=== PATIENT | female | born 1965 | race Caucasian/White ===

== ENCOUNTER 2017-07-12 06:12 | Inpatient (IN) | payer BC ==
[~2017-07-12] VITALS: Ht 152.4 cm; Wt 94.0 kg
[2017-07-12] VITALS (8 sets, daily range): BP systolic 115–146; BP diastolic 63–84
[~2017-07-12 06:12] MED LIST: MIDRIN (DURADR1 CAP PO
--- NOTE | 2017-07-12 06:20 | NUR ---
500 ML BAG RUNNING OF NORMAL SALINE PER EMS
--- NOTE | 2017-07-12 07:03 | NUR ---
SPOKE WITH PATIENT AT THE BEDSIDE, STILL HAVING DIZZINESS WHEN MOVING HER HEAD. PLACED BACK ON BEVERAGE SERVER, VITAL SIGNS CHARTED. NO PAIN.
[2017-07-12 07:10] LABS: BASO # 0.1 10*3/uL (0.0-0.1); BASO % 0.8 % (0.0-1.0); EOS # 0.3 10*3/uL (0.0-0.4); EOS % 3.6 % (1.0-4.0); HEMATOCRIT 43.9 % (37.0-47.0); HEMOGLOBIN 14.2 g/dl (12.0-16.0); LYMPH # 2.2 10*3/uL (1.3-4.4); LYMPH % 29.5 % (27.0-41.0); MEAN CELL VOLUME 90.3 fl (81.0-99.0); MEAN CORPUSCULAR HGB 29.2 pg (27.0-31.0); MEAN CORPUSCULAR HGB CONC 32.3 g/dl (33.0-37.0); MEAN PLATELET VOLUME 10.2 fl (9.6-12.3); MONO # 0.7 10*3/uL (0.1-1.0); MONO % 8.8 % (3.0-9.0); NEUT # 4.3 10*3/uL (2.3-7.9); PLATELET COUNT AUTOMATED 247 10*3/uL (130-400); RED BLOOD COUNT 4.86 10*6/uL (4.10-5.10); RED CELL DISTRI WIDTH 13.2 % (0-14.5); WHITE BLOOD COUNT 7.5 10*3/uL (4.8-10.8)
[2017-07-12 07:37] LABS: ALBUMIN 3.1 gm/dl (3.1-4.5); ALKALINE PHOSPHATASE 85 U/L (45-117); BUN 12 mg/dl (7-24); CHLORIDE 107 mmol/L (98-107); CREATININE 1.07 mg/dL (0.55-1.02); POTASSIUM 4.2 mmol/L (3.5-5.1); SGOT/AST 16 IU/L (3-35); SGPT/ALT 10 U/L (12-78); SODIUM 141 mmol/L (136-145); TOTAL PROTEIN 6.8 gm/dL (6.4-8.2)
[2017-07-12 07:38] LABS: TROPONIN I < 0.015 ng/ml (<0.045)
[2017-07-12 07:50] LABS: BILIRUBIN NEGATIVE (NEGATIVE); BLOOD TRACE-INTACT (NEGATIVE); CLARITY CLEAR (CLEAR); COLOR YELLOW (YELLOW); GLUCOSE NEGATIVE (NEGATIVE); KETONE NEGATIVE (NEGATIVE); LEUKO ESTERASE NEGATIVE (NEGATIVE); NITRITE NEGATIVE (NEGATIVE); SPECIFIC GRAVITY <= 1.005 (1.005-1.030); UROBILINOGEN 0.2 E.U./dl (0.2-1.0)
--- NOTE | 2017-07-12 07:50 | NUR ---
ORTHOSTATICS PERFORMED. LYING- BP- 131/72 PULSE- 63 SITTING- BP- 121/82 PULSE- 65 PT DIZZY WITH THESE RESULTS, DID NOT MAKE HER STAND. RESULTS GIVEN TO .
[2017-07-12 08:00] LABS: BACTERIA TRACE
--- NOTE | 2017-07-12 08:50 | NUR ---
A 51, admitted to , under the services of ALFRED Serrano DO with a diagnosis of VERTIGO, NAUSEA, VOMITING. Chief complaint is DIZZINESS, VERTIGO. Patient arrived via bed from ER. Monitor applied. Initial assessment completed. Vital signs taken and recorded. ALFRED SERRANO DO notified of admission to the unit. Orders received. See assessment for past medical history, medications and allergies. Patient and/or family oriented to unit. [facility] visitation policy reviewed. Clothing/patient valuable form completed. NERY RAMOS
[2017-07-12] MEDS ORDERED: PRADAXA150 MG PO (09:02)
[2017-07-12] MEDS ORDERED: DIOVAN80 M1 PO (09:02)
--- NOTE | 2017-07-12 09:36 | NUR ---
DR DAVILA NOTIFIED THAT PATIENT IS IN THE ROOM AND AWAITING TO VERIFY MEDS ONCE PHARMACY OPENS
--- NOTE | 2017-07-12 10:49 | NUR ---
MEDS VERIFIED. DR DAVILA AWARE
--- NOTE | 2017-07-12 18:22 | NUR ---
ORTHOS CALLED TO DR Asmita DAVILA
--- NOTE | 2017-07-12 23:32 | NUR ---
24 HR chart check completed.
[2017-07-13] VITALS: BP 124/68
[2017-07-13 06:26] LABS: BASO # 0.1 10*3/uL (0.0-0.1); BASO % 0.9 % (0.0-1.0); EOS # 0.3 10*3/uL (0.0-0.4); EOS % 3.1 % (1.0-4.0); HEMATOCRIT 39.6 % (37.0-47.0); HEMOGLOBIN 12.9 g/dl (12.0-16.0); LYMPH # 2.7 10*3/uL (1.3-4.4); LYMPH % 33.7 % (27.0-41.0); MEAN CELL VOLUME 91.9 fl (81.0-99.0); MEAN CORPUSCULAR HGB 29.9 pg (27.0-31.0); MEAN CORPUSCULAR HGB CONC 32.6 g/dl (33.0-37.0); MEAN PLATELET VOLUME 10.4 fl (9.6-12.3); MONO # 0.6 10*3/uL (0.1-1.0); MONO % 7.5 % (3.0-9.0); NEUT # 4.4 10*3/uL (2.3-7.9); NEUT % 54.6 % (47.0-73.0); PLATELET COUNT AUTOMATED 236 10*3/uL (130-400); RED BLOOD COUNT 4.31 10*6/uL (4.10-5.10); RED CELL DISTRI WIDTH 13.3 % (0-14.5)
[2017-07-13 06:58] LABS: BUN 12 mg/dl (7-24); CHLORIDE 110 mmol/L (98-107); CHOLESTEROL 159 mg/dL (<200); HDL CHOLESTEROL 40 mg/dl (40-60); LDL CHOLESTEROL 91 mg/dL (9-159); MAGNESIUM 1.9 mg/dL (1.5-2.1); PHOSPHOROUS 2.5 mg/dL (2.5-4.9); POTASSIUM 3.9 mmol/L (3.5-5.1); SODIUM 142 mmol/L (136-145); TRIGLYCERIDES 138 mg/dl (<150); VLDL CHOLESTEROL 28 mg/dL (6-40)
[2017-07-13 08:00] VITALS: BP 128/74
--- NOTE | 2017-07-13 08:30 | NUR ---
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 Patient states lives at HOME with HER . There are 15 steps in the home. Physician: DR BLAS Pharmacy: [facility] services: NONE Patient's level of ADLs: INDEPENDENT Patient has working utilities: YES DME: NONE Follow-up physician's appointment after d/c: WILL BE MADE PRIOR TO DC Does patient want to access PORTAL?: Discharge plan HOME. GENTRY OLIVER
[2017-07-13 09:23] LABS: VITAMIN D, 25-HYDROXY 19.3 ng/mL (30-100)
[2017-07-13 12:00] VITALS: BP 126/62
--- NOTE | 2017-07-13 12:25 | NUR ---
Discharge instructions reviewed with patient/family. Patient receptive and verbalizes understanding. Follow-up care arranged. Written instructions given to patient/family. EVITA ANDREWS
== END 2017-07-13 12:25 | disposition home or self-care (01) | DRG 392 ==
LOC: ED 06:12 → EDHOLD 08:05 → 5E 08:05
PROVIDERS: Emergency Medicine; Internal Medicine; ADMIT Internal Medicine
DX: R11.2 Nausea with vomiting, unspecified (principal); D68.9 Coagulation defect, unspecified; E44.1 Mild protein-calorie malnutrition; I10 Essential (primary) hypertension; R42 Dizziness and giddiness; E66.01 Morbid (severe) obesity due to excess calories; R00.1 Bradycardia, unspecified; Z86.73 Personal history of transient ischemic attack (TIA), and cerebral infarction without residual deficits; Z80.7 Family history of other malignant neoplasms of lymphoid, hematopoietic and related tissues; Z79.899 Other long term (current) drug therapy; Z68.29 Body mass index [BMI] 29.0-29.9, adult

== ENCOUNTER 2024-02-23 17:20 | Inpatient (IN) | payer BC ==
[~2024-02-23] VITALS: Ht 152.4 cm; Wt 100.8 kg
[~2024-02-23 17:20] MED LIST changes: +DIOVAN80 M1 PO; +PRADAXA150 MG PO
[2024-02-23 17:26] VITALS: BP 148/100
[2024-02-23] MEDS ORDERED: IOHEXOL 350 MG/ML 100 ML VIAL IV ONE (17:40)
[2024-02-23] MEDS ORDERED: SODIUM CHLORIDE 0.9% 100 ML BAG IV ONE (17:40)
[2024-02-23 18:35] LABS: BASO # 0.1 10*3/uL (0.0-0.1); BASO % 0.7 % (0.0-1.0); EOS # 0.2 10*3/uL (0.0-0.4); EOS % 2.4 % (1.0-4.0); LYMPH # 2.4 10*3/uL (1.3-4.4); LYMPH % 29.1 % (27.0-41.0); MEAN CELL VOLUME 94.4 fl (81.0-99.0); MEAN CORPUSCULAR HGB 29.1 pg (27.0-31.0); MEAN CORPUSCULAR HGB CONC 30.9 g/dl (33.0-37.0); MEAN PLATELET VOLUME 10.2 fl (9.6-12.3); MONO # 0.5 10*3/uL (0.1-1.0); MONO % 6.5 % (3.0-9.0); NEUT # 5.1 10*3/uL (2.3-7.9); NEUT % 61.2 % (47.0-73.0); PLATELET COUNT AUTOMATED 252 10*3/uL (130-400); RED BLOOD COUNT 4.98 10*6/uL (4.10-5.10); RED CELL DISTRI WIDTH 13.3 % (0-14.5); WHITE BLOOD COUNT 8.3 10*3/uL (4.8-10.8)
[2024-02-23 18:48] LABS: ACT PARTIAL THROMBO TIME 26.9 SECONDS (20.0-32.1)
[2024-02-23] MEDS ORDERED: LOSARTAN POTAS100 M1 PO (18:54)
[2024-02-23] MEDS ORDERED: TOPROL XL25 MG PO (18:54)
[2024-02-23] MEDS ORDERED: LEXAPRO10 MG PO (18:55)
[2024-02-23 18:58] LABS: ALKALINE PHOSPHATASE 105 U/L (46-116); BUN 13 mg/dl (9-23); CHLORIDE 105 mmol/L (98-107); POTASSIUM 4.2 mmol/L (3.4-5.1); SGPT/ALT 7 U/L (5-49); TOTAL PROTEIN 7.3 gm/dL (6.0-8.0)
[2024-02-23 21:04] VITALS: BP 141/70
[2024-02-23] MEDS ORDERED: ACETAMINOPHEN 650 MG SUPP R PRN (21:15)
[2024-02-23] MEDS ORDERED: TEMAZEPAM 15 MG CAP PO PRN (21:15)
[2024-02-23] MEDS ORDERED: Magnesium Hydroxide 30 ML UDC PO PRN (21:15)
[2024-02-23] MEDS ORDERED: Ondansetron Hydrochloride 4 MG/2 ML VIAL IV PRN (21:15)
[2024-02-23] MEDS ORDERED: BISACODYL 5 MG TAB PO PRN (21:15)
[2024-02-23] MEDS ORDERED: MORPHINE Sulfate 2 MG/ML SYR IV PRN (21:15)
[2024-02-23] MEDS ORDERED: ACETAMINOPHEN 325 MG TAB PO PRN (21:15)
[2024-02-23] MEDS ORDERED: BISACODYL 10 MG SUPP R PRN (21:15)
[2024-02-23] MEDS ORDERED: Acetaminophen/Hydrocodone 5 MG/325 MG TABLET PO PRN (21:15)
[2024-02-23] MEDS ORDERED: ESCITALOPRAM OXALATE 10 MG TAB PO SCH (22:00)
[2024-02-23] MEDS ORDERED: METOPROLOL SUCCINATE XR 25 MG TAB PO SCH (22:00)
[2024-02-23] MEDS ORDERED: DABIGATRAN 150 MG CAP PO SCH (22:00)
[2024-02-23] MEDS ORDERED: Losartan Potassium 50 MG TAB PO SCH (22:00)
[2024-02-24] VITALS: BP 129/49
[2024-02-24 04:54] LABS: ACT PARTIAL THROMBO TIME 39.7 SECONDS (20.0-32.1)
[2024-02-24 05:08] LABS: VITAMIN D, 25-HYDROXY 17.9 ng/mL (30-100)
[2024-02-24 05:09] LABS: ALKALINE PHOSPHATASE 88 U/L (46-116); BUN 14 mg/dl (9-23); CHLORIDE 105 mmol/L (98-107); CHOLESTEROL 201 mg/dL (<200); LDL CHOLESTEROL 129 mg/dL (9-159); SGPT/ALT 7 U/L (5-49); TOTAL PROTEIN 6.5 gm/dL (6.0-8.0); TRIGLYCERIDES 106 mg/dl (<150)
[2024-02-24 06:09] LABS: BASO # 0.1 10*3/uL (0.0-0.1); BASO % 0.7 % (0.0-1.0); EOS # 0.2 10*3/uL (0.0-0.4); EOS % 2.4 % (1.0-4.0); HEMATOCRIT 43.3 % (37.0-47.0); LYMPH # 2.9 10*3/uL (1.3-4.4); LYMPH % 36.3 % (27.0-41.0); MEAN CELL VOLUME 93.1 fl (81.0-99.0); MEAN CORPUSCULAR HGB CONC 31.2 g/dl (33.0-37.0); MEAN PLATELET VOLUME 10.4 fl (9.6-12.3); MONO # 0.6 10*3/uL (0.1-1.0); MONO % 7.4 % (3.0-9.0); NEUT # 4.3 10*3/uL (2.3-7.9); NEUT % 53.1 % (47.0-73.0); PLATELET COUNT AUTOMATED 253 10*3/uL (130-400); RED BLOOD COUNT 4.65 10*6/uL (4.10-5.10); RED CELL DISTRI WIDTH 13.3 % (0-14.5)
[2024-02-24] MEDS ORDERED: LORazepam 1 MG TAB PO ONE (08:15)
[2024-02-24 12:00] VITALS: BP 133/60
[2024-02-24] MEDS ORDERED: BARIUM SULFATE 98% 340 GM BOT PO ONE ×2 (13:56→14:00)
[2024-02-24 15:39] VITALS: BP 111/46
[2024-02-24 16:55] VITALS: BP 137/79
[2024-02-24 20:36] VITALS: BP 131/74
[2024-02-25] VITALS: BP 123/66
[2024-02-25 06:46] LABS: BASO # 0.1 10*3/uL (0.0-0.1); BASO % 0.9 % (0.0-1.0); EOS # 0.2 10*3/uL (0.0-0.4); HEMATOCRIT 43.9 % (37.0-47.0); LYMPH # 2.3 10*3/uL (1.3-4.4); LYMPH % 34.9 % (27.0-41.0); MEAN CELL VOLUME 90.7 fl (81.0-99.0); MEAN CORPUSCULAR HGB 28.9 pg (27.0-31.0); MEAN CORPUSCULAR HGB CONC 31.9 g/dl (33.0-37.0); MEAN PLATELET VOLUME 10.3 fl (9.6-12.3); MONO # 0.5 10*3/uL (0.1-1.0); MONO % 7.2 % (3.0-9.0); NEUT # 3.6 10*3/uL (2.3-7.9); NEUT % 53.9 % (47.0-73.0); PLATELET COUNT AUTOMATED 241 10*3/uL (130-400); RED BLOOD COUNT 4.84 10*6/uL (4.10-5.10); RED CELL DISTRI WIDTH 13.3 % (0-14.5); WHITE BLOOD COUNT 6.7 10*3/uL (4.8-10.8)
[2024-02-25 07:29] LABS: BUN 12 mg/dl (9-23); CHLORIDE 105 mmol/L (98-107); POTASSIUM 3.9 mmol/L (3.4-5.1)
[2024-02-25 08:00] VITALS: BP 155/63
[2024-02-25 12:00] VITALS: BP 149/83
[2024-02-25] MEDS ORDERED: LIPITOR80 MG PO (13:06)
== END 2024-02-25 13:40 | disposition home or self-care (01) | DRG 69 ==
LOC: ED 17:20 → EDHOLD 18:51 → 4E 02-24 17:04
PROVIDERS: Emergency Medicine; Student in an Organized Health Care Education/Training Program; ADMIT Student in an Organized Health Care Education/Training Program; ATTEND Student in an Organized Health Care Education/Training Program
PROC: BD1BYZZ Fluoroscopy of Mouth/Oropharynx using Other Contrast (ICD-10-PCS; principal; 2024-02-24)
DX: G45.9 Transient cerebral ischemic attack, unspecified (principal); D68.9 Coagulation defect, unspecified; E72.12 Methylenetetrahydrofolate reductase deficiency; E55.9 Vitamin D deficiency, unspecified; H53.8 Other visual disturbances; I10 Essential (primary) hypertension; R00.1 Bradycardia, unspecified; Z90.710 Acquired absence of both cervix and uterus; Z79.899 Other long term (current) drug therapy; Z91.148 Patient's other noncompliance with medication regimen for other reason